=== PATIENT | male | born 1960 | race Caucasian/White ===

== ENCOUNTER 2016-08-19 18:32 | Emergency (ER) | payer SELFPAY ==
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
[2016-08-19 19:16] LABS: eGFR (African) > 60; eGFR (Non-African) > 60
[2016-08-19] MEDS ORDERED: HALOPERIDOL LACTATE 5 MG/ML VIAL IM ONE ×2 (19:55→19:56)
[2016-08-19 20:01] LABS: BASOPHILS % 0.3 (0.0-1.5); EOSINOPHILS % 1.7 % (0.0-6.8); MONOCYTES # 0.4 # k/uL (0.0-0.9); MONOCYTES % 5.6 % (0.0-11.0); NEUTROPHILS # 4.9 # k/uL (1.4-7.7)
[2016-08-19] MEDS ORDERED: 0.9 % SODIUM CHLORIDE 1,000 ML IV ONE (21:19)
[2016-08-19 23:44] VITALS: BP 156/80
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
== END 2016-08-19 23:00 | disposition home or self-care (01) ==
LOC: ED 18:32
DX: S01.81XA Laceration without foreign body of other part of head, initial encounter (principal); V87.7XXA Person injured in collision between other specified motor vehicles (traffic), initial encounter; Y93.9 Activity, unspecified; Y99.9 Unspecified external cause status; F10.129 Alcohol abuse with intoxication, unspecified; Y90.8 Blood alcohol level of 240 mg/100 ml or more
CPT/HCPCS: 51702; 70450; 70486; 72125; 74177; 80053; 80320; 82550; 82553; 84484; 85025; 96372; 99283; 99284; J1630; G0480; J7030; S1016